=== PATIENT | female | born 1965 | race Two or more races ===

== ENCOUNTER 2021-09-12 09:25 | Emergency (ER) | payer OTHER, SELFPAY ==
[2021-09-12 09:32] VITALS: BP 159/58; PULSE 81; RESP 19; TEMP 36.6; O2SAT 98; BMI 30.6
[2021-09-12 09:50] LABS: Appearance Urine CLOUDY; Color Urine YELLOW; Glucose Urine UA NEG (NEG); Leukocyte Esterase Urine 3+ (NEG); Nitrite Urine NEG (NEG); UACC Culture Trigger YES; Urine Blood TRACE (NEG); Urine Ketones NEG (NEG); Urine Protein TRACE MG/DL (NEG-TRACE)
[2021-09-12 09:58] LABS: Bacteria Urine 1+ /LPF; Oval Fat Bodies Urine NOTED; Squamous Epithelial Cell Urine 1+ /LPF; UACC CULT YES; WBC Urine TNTC /HPF (0-4)
--- NOTE | 2021-09-12 09:58 | ED.FEMALEGU ---
HPI - Female Genitourinary General Chief complaint: Urogenital-Female Stated complaint: ?UTI Time Seen by Provider: 09/12/21 09:58 Source: patient Limitations: no limitations History of Present Illness HPI Narrative: Patient presents to the ER complaining of symptoms of a UTI. Patient has had UTIs in the past and the symptoms are similar. Patient describes some painful urination frequency and urgency. Patient had some right-sided flank pain but that is somewhat resolved. Patient denies any past history of kidney stones. Pain is 4/10. Patient denies vaginal discharge. Patient has a history of hernia repair in the past. No other complaints at this time. Related Data Previous Rx's Medication Instructions Recorded nitrofurantoin 100 mg PO Q12H 5 Days #10 cap 09/12/21 monohydrate/macrocrystals 100 mg capsule (Macrobid) Allergies Allergy/AdvReac Type Severity Reaction Status Date / Time pregabalin [From Lyrica] Allergy Rash Verified 09/12/21 09:32 aspirin [ASA] AdvReac Stomach Verified 09/12/21 09:32 Upset Review of Systems Constitutional: Constitutional: Denies chills, Denies fatigue, Denies fever(s) and Denies headache(s) ENT: Denies headache(s) and Denies sore throat Cardiovascular: Cardiovascular: Denies chest pain and Denies dyspnea Respiratory: Respiratory: Denies dyspnea Gastrointestinal: Gastrointestinal: Denies diarrhea, Reports nausea and Denies vomiting Genitourinary: Genitourinary: Reports dysuria, Reports urinary hesitancy and Reports urinary urgency Musculoskeletal: Comments: Slight right-sided back pain Neurologic: Denies headache(s) Endocrine: Endocrine: Denies fatigue PENDING SALE TO [facility] Past Medical History Medical History Diabetes type 1, controlled High cholesterol HTN (hypertension) Social History Social History Advance Directives: No Advance Directives Information Provided: No Patient : No Physical Exam Vital Signs: Vital Signs: Last Vital Signs Temp 98 F 09/12/21 09:32 Pulse 81 09/12/21 09:32 Resp 19 09/12/21 09:32 BP 159/58 H 09/12/21 09:32 Pulse Ox 98 09/12/21 09:32 Body Mass Index 30.6 vital signs have been reviewed as normal and appeared to be correct. Blood pressure normal. Heart rate normal. Respiration rate normal. Temperature normal. Oxygen saturation normal. Appearance: Alert. Oriented X3. No acute distress. Head: Normal external exam. Normocephalic. Atraumatic. Eyes: PERRLA. EOMI. Conjunctiva and sclera normal. Eyelids normal. ENT: Pharynx normal. Uvula midline. Moist mucous membranes. Neck: Soft full range of motion, no JVD CVS: Heart regular rate and rhythm no murmurs and rubs Respiratory: Breath sounds are clear to auscultation bilaterally. No accessory muscle use noted. Abdomen: Soft nontender no rebound or guarding positive bowel sounds Back: Slight CVA tenderness on the right patient has full range of motion of the back Skin: Skin warm and dry. Normal skin color. Normal skin turgor. No rashes Extremities: Patient moving all extremities purposely Neuro: Oriented X 3. No motor deficit. No sensory deficit. Const: Other: UTI Early pyelonephritis Renal calculi Renal colic Symptoms are very consistent with UTI UA pending. Patient is nontoxic in appearance [facility] - Female Genitourinary Lab Data Labs: Lab Results 09/12/21 Range/Units 09:44 Urine Color YELLOW Urine Appearance CLOUDY Urine pH 6.0 (5.0-8.0) Ur Specific [place] 1.010 (1.005-1.025) Urine Protein TRACE (NEG-TRACE) MG/DL Urine Glucose (UA) NEG (NEG) MG/DL Urine Ketones NEG (NEG) MG/DL Urine Blood TRACE (NEG) Urine Nitrite NEG (NEG) Ur Leukocyte Esterase 3+ H (NEG) Urine RBC 1-4 (0) /HPF Urine WBC TNTC H (0-4) /HPF Ur Squamous Epith Cells 1+ /LPF Urine Bacteria 1+ /LPF Ur Oval Fat Bodies NOTED (NONE) Discharge Plan Discharge Clinical Impression: Urinary tract infection Patient Disposition: Home, Self-Care Instructions: Urinary Tract Infection in Women (ED) Additional Instructions: Increase fluids rest your symptoms are consistent with a UTI Prescriptions: New nitrofurantoin monohyd/m-cryst [Macrobid] 100 mg capsule 100 mg PO Q12H 5 Days Qty: 10 RF: 0
== END 2021-09-12 10:26 | disposition home or self-care (01) ==
PROVIDERS: Emergency Provider Emergency Medicine
DX: N39.0 Urinary tract infection, site not specified (principal); I10 Essential (primary) hypertension; E10.9 Type 1 diabetes mellitus without complications; E78.5 Hyperlipidemia, unspecified
CPT/HCPCS: 81001; 87086; 87088; 87186; 99283; 99284

== ENCOUNTER 2021-10-14 13:14 | Outpatient (REF) | payer OTHER, SELFPAY | END 2021-10-14 13:15 | disposition home or self-care (01) | LOC: HO.LAB 13:14 | PROVIDERS: PCP Internal Medicine; Visit Provider Internal Medicine | DX: Z20.822 Contact with and (suspected) exposure to COVID-19 (principal) | CPT/HCPCS: C9803; U0003; U0005 ==

== ENCOUNTER → 2022-02-18 14:29 | Outpatient (REF) | payer OTHER, SELFPAY ==
--- NOTE | 2022-02-18 14:32 | CA_ITS ---
Transthoracic Echocardiogram Patient (Last, First, Middle): Nereyda Morelos, Gender: Female Date of : 1965 Age: 56 Procedure Date: 02/18/2022 Procedure Type: Transthoracic Echocardiogram Location: OP Height: 160.02 cm Weight: 77.11 kg BSA: 1.80 m2 Heart Rate: bpm BP: 138 / 72 mmHg Validation Architect: DEANN Flor MD: Rony Thomason MD Double Back Operator: Ameya Downing MD Symptoms: R01.1 - Cardiac murmur, unspecified Study Quality: Good ECG Rhythm: Sinus Conclusions: - 1. Normal LV systolic function with mild LVH with LVEF of 60 65% with grade 1 diastolic dysfunction 2. Mild aortic stenosis 3. Normal RV systolic pressure 4. No gross pericardial effusion Findings Left Ventricle Normal left ventricular size and systolic function. There is mildly increased left ventricular wall thickness. The visually estimated ejection fraction is between 60-65%. Spectral Doppler is indicative of an impaired relaxation filling pattern. E/E prime ratio is <8, consistent with normal filling pressures. Evidence suggests grade I (mild) diastolic dysfunction. Right Ventricle Normal right ventricular cavity size and systolic function. Atria The left atrium is likely dilated. There is no evidence of interatrial shunt. The right atrium is normal in size. Aortic Valve There is mild calcification of the aortic valve. There is mild aortic valve stenosis. The peak aortic gradient is 18 mmHg.The mean gradient is 8 mmHg. The aortic valve area is 1.90 cm2. There is no aortic valve regurgitation. Mitral Valve There is mild anterior and moderate posterior mitral leaflet thickening. There is moderate mitral annular calcification. There is trace mitral valve regurgitation. There is no mitral valve stenosis. Pulmonic Valve The pulmonic valve is likely normal. There is trace to mild pulmonic valve regurgitation. Tricuspid Valve Normal tricuspid valve structure. There is mild tricuspid valve regurgitation. The right ventricular systolic pressure is normal. The right ventricular systolic pressure is 37 mmHg. Normal right atrial pressure. There is no evidence of pulmonary hypertension. Great Vessels All visible segments of the aorta are normal in size. The pulmonary artery was not well visualized. Venous The inferior vena cava is normal in size and collapses greater than 50% with inspiration. Pericardium/Pleural There is no evidence of pericardial effusion. Prior Study Comparison No prior study available for comparison. Measurements 2D Linear Measurements IVSd: 1.38 0.6-0.9/0.6-1.0 cm LVIDd: 3.49 3.9-5.3/4.2-5.9 cm LVIDd Index: 1.94 2.4-3.2/2.2-3.1 cm/m2 LVIDs: 2.40 2.0-3.6 cm LVPWd: 1.32 0.7-1.1 cm LA Diam: 4.40 2.7-3.8/3.0-4.0 cm LAIDs Index: 2.44 1.5-2.3 cm/m2 LV Mass: 202.45 67-162/88-224 g LV Mass Index: 112.47 43-95/49-115 g/m2 LVOT Diam: 2.20 3.0+(-)1.3 cm 2D Systolic Function EF 4C: 63.30 >55% EF 2C: 69.30 >55% EF BiP: 66.60 >55% Mitral Valve MV Pk E: 0.75 MV PK A: 0.95 MV Decel Time: 214.00 E/A: 0.80 E'Lateral: 4.35 E'Medial: 5.11 E/E' Med: 14.60 E/E' Lat: 17.10 PHT: 63.00 MVA PHT: 3.49 Decel [place]: 3.49 Aortic Valve AoV Pk Kenneth: 2.15 AoV Mn Kenneth: 1.32 AoV VTI: 0.39 AoV Pk Grad: 18.00 Aov Mn Grad: 8.00 BROCK Cont.VTI: 1.90 LVOT LVOT Pk Kenneth: 1.04 LVOT Mn Kenneth: 0.70 LVOT VTI: 0.19 LVOT Pk Grad: 4.00 LVOT Mn Grad: 2.00 LVOT Diam: 2.20 LVOT Area: 3.80 Diastolic Function MV Pk E: 0.75 MV Pk A: 0.95 E/A: 0.80 E'Medial: 5.11 E/E' Med: 14.60 E' Laterial: 4.35 E/E' Lat: 17.10 Right Ventricle TAPSE (mm): 26.00 TVS' Kenneth: 18.00 Tricuspid Valve TR Pk Kenneth: 2.67 TR Pk Grad: 29.00 RA Press: 8.00 RVSP: 37.00 Great Vessels Aorta Sinus of Valsalva: 2.85 2.0-3.[address] [place]: 2.64 1.7-3.4 cm Ao Asc: 3.20 2.1-3.4 cm Ao Arch: 2.80 Updated in Other Vendor System with Status of Final Ameya Downing MD electronically signed on 02/19/2022 3:40:29 PM with status of Final
== END ==
LOC: HO.CARD 14:29
PROVIDERS: Visit Provider Internal Medicine
DX: R01.1 Cardiac murmur, unspecified (principal)
CPT/HCPCS: 93306

== ENCOUNTER 2022-03-24 12:14 | Outpatient (REF) | payer OTHER, SELFPAY ==
[2022-03-24 12:30] LABS: MANUAL DIFF FLAG NO
[2022-03-24 13:20] LABS: Basophils Absolute Auto 0.1 X10*3/uL (0.0-0.2); Basophils Percent Auto 0.5 % (0-2); Eosinophils Absolute Auto 0.6 X10*3/uL (0.0-0.4); Eosinophils Percent Auto 6.3 % (0-4); Hematocrit 36.9 % (37.0-47.0); Hemoglobin 12.3 g/dl (12.0-16.0); Imm Gran Abs Auto 0.03 X10*3/uL (0.00-0.03); Imm Gran Pct Auto 0.3 % (0.0-0.4); Lymphocytes Absolute Auto 3.1 X10*3/uL (1.2-4.9); Lymphocytes Percent Auto 33.9 % (20-40); Mean Corpuscular HGB Conc 33.3 g/dl (31.0-35.0); Mean Corpuscular Hemoglobin 27.2 pg (27.0-33.0); Mean Corpuscular Volume 81.6 fL (80.0-98.0); Mean Platelet Volume 10.5 fL (9.4-12.3); Monocytes Absolute Auto 0.5 X10*3/uL (0.1-1.2); Monocytes Percent Auto 5.5 % (2-11); Neutrophils Absolute Auto 4.9 x10*3/uL (2.0-8.3); Neutrophils Percent Auto 53.5 % (45-73); Platelet Count 293 X10*3/uL (160-400); Red Blood Count 4.52 X10*6/uL (4.20-5.50); Red Cell Distribution Width 15.6 % (11.0-16.0); White Blood Count 9.2 X10*3/uL (4.8-10.8)
[2022-03-24 13:47] LABS: Alanine Aminotransferase 16 U/L (0-31); Albumin Level 4.1 g/dL (3.5-5.0); Alkaline Phosphatase 92 U/L (39-117); Anion Gap 13 (12-20); Aspartate Amino Transferase 13 U/L (5-31); Bilirubin Total < 0.2 mg/dL (0.0-1.0); Blood Urea Nitrogen 13 mg/dL (9-16); Calcium 9.6 mg/dL (8.4-10.2); Carbon Dioxide 25 mmol/L (22-29); Chloride 106 mmol/L (96-108); Cholesterol 407 mg/dL; Estimated Glomerular Filt Rate > 60; Glucose Fasting 219 mg/dL (60-99); HDL Cholesterol 38 mg/dL; LDL Cholesterol Calculated 305 mg/dl; Potassium 4.6 mmol/L (3.3-5.1); Sodium 139 mmol/L (135-145); Total Protein 6.9 g/dL (6.5-8.0); Triglycerides 323 mg/dL
[2022-03-24 14:00] LABS: Appearance Urine CLEAR; Color Urine YELLOW; Creatinine Urine 170.82 mg/dL; Glucose Urine UA NEG (NEG); Leukocyte Esterase Urine NEG (NEG); Microalbum/Creatinine Ratio Ur 28.6 ug/mg cr; Nitrite Urine NEG (NEG); Urine Blood NEG (NEG); Urine Ketones NEG (NEG); Urine Protein NEG (NEG-TRACE)
[2022-03-24 14:15] LABS: TSH reflex Free T4 1.54 uIU/mL (0.32-4.0); Vitamin D 25-OH Total 19.6 ng/mL (>30)
== END 2022-03-24 12:15 | disposition home or self-care (01) ==
LOC: HO.LAB 12:14
PROVIDERS: PCP Internal Medicine; Visit Provider Internal Medicine
DX: L72.3 Sebaceous cyst (principal); L72.0 Epidermal cyst; M50.90 Cervical disc disorder, unspecified, unspecified cervical region; F41.9 Anxiety disorder, unspecified; F33.9 Major depressive disorder, recurrent, unspecified; E66.9 Obesity, unspecified; E11.65 Type 2 diabetes mellitus with hyperglycemia; E78.00 Pure hypercholesterolemia, unspecified; I10 Essential (primary) hypertension; E55.9 Vitamin D deficiency, unspecified; Z15.09 Genetic susceptibility to other malignant neoplasm; Z15.01 Genetic susceptibility to malignant neoplasm of breast; Z79.4 Long term (current) use of insulin
CPT/HCPCS: 36415; 80053; 80061; 81003; 82043; 82306; 84443; 85025; 99202